=== PATIENT | female | born 1945 | race Caucasian/White ===

== ENCOUNTER 2017-01-22 11:43 | Emergency (ER) | payer MEDICARE ==
[~2017-01-22] VITALS: Ht 147.3 cm; Wt 40.4 kg
[~2017-01-22 11:43] MED LIST: ALPRAZOLAM0.25 M2 PO; ANAPROX DS550 MG PO; AZITHROMYCIN250 M1 PO; BACLOFEN 10MG T10 MG PO; BENZONATATE100 M1 PO; BENZONATATE100 MG PO; CHEWABLE ASPIRI81 MG PO; CIPRO 500MG TA500 MG PO; CLARITIN10 MG PO; COQ1050 MG PO; CRESTOR10 MG PO; DIAZEPAM2 MG PO; FLEXERIL10 MG PO; FOSAMAX70 MG PO; GABAPENTIN100 MG PO; HIPREX1 GM PO; HYDROCODONE BIT1 T39 PO; HYDROCODONE-APA1 TA2 PO; KEFLEX 500MG.500 MG PO; LEVAQUIN500 MG PO; LEVOCETIRIZINE D5 MG PO; LINZESS145 MCG PO; LIPITOR80 M1 PO; LORTAB 5/3251 TAB PO; LORTAB 5/500 501 TAB PO; LYRICA50 MG PO; MAXZIDE 25 MG-31 TAB PO; MEDROL 4MG. DOSE4 MG PO; MIRAPEX 0.120.125 MG PO; NAPROSYN 500MG500 MG PO; NEXIUM40 MG PO; NITROSTAT0.4 MG SL; NORCO 325 MG-51 TAB PO; PERCOCET 5/3251 EACH PO; PERCOCET1 TA1 PO; PRAMIPEXOLE0.125 M1 PO; PREDNISONE 5MG.5 MG PO; PRILOSEC20 M1 PO; SYMBICORT1 AE1 IH; SYNTHROID 0.0.125 MG PO; SYNTHROID 0.10.15 MG PO; TESSALON PERLE100 MG PO; TRAMADOL HYDROC1 TA1 PO; VENLAFAXINE37.5 MG PO; XYZAL5 MG PO; ZOFRAN ODT8 MG PO; ZOFRAN4 MG PO
--- NOTE | 2017-01-22 12:03 | Urgent Treatment Center Report ---
History of Present Issue Date/Time Seen by Provider 01/22/17 1156 Visit Reason Pt arrived:Walked Presenting Problem:PT C/O LEFT KNEE PAIN FOR THE PAST 2 MONTHS AND HER RIGHT GREAT TOE HAS BEEN INFECTED FOR A WEEK Location if Accident: Onset of symptoms date/time:/ or onset unknown for:MEDICAL HX UNKNOWN Have you (or family members/close friends) recently traveled outside the [place]? N If Yes, where/when: Have you had exposure to infectious disease within the past month? TB? Other? Specify: Patient states that she has been having pain in her left knee for 2 months State that pain comes and goes and sometimes hurts worse at night. States that she noticed that she is having some redness around her great toe toenail. State that she has been messing with it thinking she may have had a ingrown nail but she hasn't got anything out of it and now it is red and swollen. 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 and she was worried that she may have caught it ALLERGIES Coded Allergies: Sulfa (Sulfonamide Antibiotics) (Mild, 01/22/17) Home Medications Reported Medications Rosuvastatin Calcium (Crestor) 10 MG PO QHS #30 Alprazolam 0.25 MG PO BID #60 Methenamine Hippurate (Hiprex) 1 GM PO BID PRAMIPEXOLE DI-HCL (Pramipexole Dihydrochloride) 0.125 MG PO QHS #180 TAB HYDROCODONE/ACETAMINOPHEN (Lortab 5-325 MG Tablet) 1 TAB PO TIDP PRN PAIN Pregabalin (Lyrica 50MG) 50 MG PO DAILY VENLAFAXINE HCL (Venlafaxine) 37.5 MG PO DAILY Levothyroxine Sodium (Synthroid 0.15MG) 0.15 MG PO DAILY LEVOCETIRIZINE DIHYDROCHLORIDE (Xyzal) 5 MG PO DAILY Linaclotide (Linzess 145MCG) 145 MCG PO DAILY Ubidecarenone (Coq10) 50 MG PO DAILY History Medical History General CAD? Yes Angina: Yes [place]: Yes Hypertension? Yes Hyperlipidemia? Yes CHF? No DVT? No PE? No COPD? No Asthma? No Anemia? No GERD? Yes Gastric ulcers? Yes GI Bleed? No Hernia? No Thyroid Problems? Yes Hypothyroidism? Yes CVA? No Seizures? No Diabetes? No Insulin Dependent: No Insulin Pump: No Home FSBS? No Renal Insuffiency? No UTI? No Stones? Yes BPH? No GB Disease: No Nephritic Syndrome? No Asplenia? No Hepatitis? No Sickle Cell Disease? No Arthritis? Yes Migraines? No Cataracts? Yes Glaucoma? No MRSA? No HIV? No TB? No Anxiety? No Depression? No Cancer? No More? No Immunization HX DT/Tetanus 1-4 YRS Surgical Hx Previous Surgery?Y CABG - TRIPLE BYPASS ROTATOR CUFF KNEE SX LEFT X2 BACK SX - FX BLOOD CLOT REMOVED LEFT HIP Family History Family HX Diabetes No Hypertension Yes Hyperlipidemia Yes Cancer Yes TB No Social History Smoking Hx Smoker: Former Smoker Tobacco: No Packs/day 1 1/2 - 2 Packs Alcohol Alcohol: No Review of Systems All Other Systems Reviewed and Negative Comment Pain in left knee area for 2 months, and pain, swelling and redness to right great toe toenail Physical Exam Vital Signs Vital Signs Date Time Temp Pulse Resp B/P Pulse O2 O2 Flow FiO2 Ox Delivery Rate 01/22 1151 97.5 71 16 142/71 98 General Appearance normal appearance, WD/WN, no apparent distress Respiratory Status Yes: trachea midline, chest symmetrical, non tender chest. No: respiratory distress. Cardiovascular normal exam Extremities Left knee area no swelling noted, no redness, good pedal pulses, Right great toe area around nail red, swollen with some drainage, drainage obtained for culture. 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 No Results/Orders Orders Procedure Date/time Status [facility] STABILIZE JOINT/AREA 01/22 1244 Active CULTURE, WOUND 01/22 1229 Active KNEE-3 VIEWS-LT 01/22 1156 Active XRAY/CT/US XRAY/CT/US XRAY knee XR interpretation by reviewed by me Xray Results no fracture seen Progress [facility] Progress Notes Comment Due to patient allergy to sulfa discussed treatment with pharmacy [facility], agreed Clindamycin 300 TID for seven days then have paitent follow up with family doctor for further treatment Departure Departure Time of Disposition 1234 Disposition DC Home or Self Care(routine) Clinical Impression Primary Impression: Toe infection Condition STABLE Referrals Kira Desir MD (Family): 3 Days-Call Office Follow up in 1 week to assess infection of toe Patient Instructions DI for Cellulitis -- Adult Additional Instructions Clean area well and apply antibiotic ointment Take oral antibioitic as prescribed FOllow up with family doctor for further evaluation and treatment Eat some yogurt to help with stomach upset from medication Take Probiotic with medication Return if needed If you see that your toe is getting worse and redness spreading up the foot go straight to the ER Discharge Counseling Counseled pt/family regarding diagnosis, test results, home care, follow up needs Prescriptions Current Visit Scripts Clindamycin Hcl (Clindamycin 300MG) 300 MG PO TID #21 CAP at [id number]
--- NOTE | 2017-01-22 12:03 | Urgent Treatment Center Report ---
History of Present Issue Date/Time Seen by Provider 01/22/17 1156 Visit Reason Pt arrived:Walked Presenting Problem:PT C/O LEFT KNEE PAIN FOR THE PAST 2 MONTHS AND HER RIGHT GREAT TOE HAS BEEN INFECTED FOR A WEEK Location if Accident: Onset of symptoms date/time:/ or onset unknown for:MEDICAL HX UNKNOWN Have you (or family members/close friends) recently traveled outside the [place]? N If Yes, where/when: Have you had exposure to infectious disease within the past month? TB? Other? Specify: Patient states that she has been having pain in her left knee for 2 months State that pain comes and goes and sometimes hurts worse at night. States that she noticed that she is having some redness around her great toe toenail. State that she has been messing with it thinking she may have had a ingrown nail but she hasn't got anything out of it and now it is red and swollen. States that a lady at her [employer] was recently diagnosed with MRSA and she was worried that she may have caught it ALLERGIES Coded Allergies: Sulfa (Sulfonamide Antibiotics) (Mild, 01/22/17) Home Medications Reported Medications Rosuvastatin Calcium (Crestor) 10 MG PO QHS #30 Alprazolam 0.25 MG PO BID #60 Methenamine Hippurate (Hiprex) 1 GM PO BID PRAMIPEXOLE DI-HCL (Pramipexole Dihydrochloride) 0.125 MG PO QHS #180 TAB HYDROCODONE/ACETAMINOPHEN (Lortab 5-325 MG Tablet) 1 TAB PO TIDP PRN PAIN Pregabalin (Lyrica 50MG) 50 MG PO DAILY VENLAFAXINE HCL (Venlafaxine) 37.5 MG PO DAILY Levothyroxine Sodium (Synthroid 0.15MG) 0.15 MG PO DAILY LEVOCETIRIZINE DIHYDROCHLORIDE (Xyzal) 5 MG PO DAILY Linaclotide (Linzess 145MCG) 145 MCG PO DAILY Ubidecarenone (Coq10) 50 MG PO DAILY History Medical History General CAD? Yes Angina: Yes [place]: Yes Hypertension? Yes Hyperlipidemia? Yes CHF? No DVT? No PE? No COPD? No Asthma? No Anemia? No GERD? Yes Gastric ulcers? Yes GI Bleed? No Hernia? No Thyroid Problems? Yes Hypothyroidism? Yes CVA? No Seizures? No Diabetes? No Insulin Dependent: No Insulin Pump: No Home FSBS? No Renal Insuffiency? No UTI? No Stones? Yes BPH? No GB Disease: No Nephritic Syndrome? No Asplenia? No Hepatitis? No Sickle Cell Disease? No Arthritis? Yes Migraines? No Cataracts? Yes Glaucoma? No MRSA? No HIV? No TB? No Anxiety? No Depression? No Cancer? No More? No Immunization HX DT/Tetanus 1-4 YRS Surgical Hx Previous Surgery?Y CABG - TRIPLE BYPASS ROTATOR CUFF KNEE SX LEFT X2 BACK SX - FX BLOOD CLOT REMOVED LEFT HIP Family History Family HX Diabetes No Hypertension Yes Hyperlipidemia Yes Cancer Yes TB No Social History Smoking Hx Smoker: Former Smoker Tobacco: No Packs/day 1 1/2 - 2 Packs Alcohol Alcohol: No Review of Systems All Other Systems Reviewed and Negative Comment Pain in left knee area for 2 months, and pain, swelling and redness to right great toe toenail Physical Exam Vital Signs Vital Signs Date Time Temp Pulse Resp B/P Pulse O2 O2 Flow FiO2 Ox Delivery Rate 01/22 1151 97.5 71 16 142/71 98 General Appearance normal appearance, WD/WN, no apparent distress Respiratory Status Yes: trachea midline, chest symmetrical, non tender chest. No: respiratory distress. Cardiovascular normal exam Extremities Left knee area no swelling noted, no redness, good pedal pulses, Right great toe area around nail red, swollen with some drainage, drainage obtained for culture. 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 No Results/Orders Orders Procedure Date/time Status [facility] STABILIZE JOINT/AREA 01/22 1244 Active CULTURE, WOUND 01/22 1229 Active KNEE-3 VIEWS-LT 01/22 1156 Active XRAY/CT/US XRAY/CT/US XRAY knee XR interpretation by reviewed by me Xray Results no fracture seen Progress [facility] Progress Notes Comment Due to patient allergy to sulfa discussed treatment with pharmacy [facility], agreed Clindamycin 300 TID for seven days then have paitent follow up with family doctor for further treatment Departure Departure Time of Disposition 1234 Disposition DC Home or Self Care(routine) Clinical Impression Primary Impression: Toe infection Condition STABLE Referrals Kira Desir MD (Family): 3 Days-Call Office Follow up in 1 week to assess infection of toe Patient Instructions DI for Cellulitis -- Adult Additional Instructions Clean area well and apply antibiotic ointment Take oral antibioitic as prescribed FOllow up with family doctor for further evaluation and treatment Eat some yogurt to help with stomach upset from medication Take Probiotic with medication Return if needed If you see that your toe is getting worse and redness spreading up the foot go straight to the ER Discharge Counseling Counseled pt/family regarding diagnosis, test results, home care, follow up needs Prescriptions Current Visit Scripts Clindamycin Hcl (Clindamycin 300MG) 300 MG PO TID #21 CAP at [id number]
[2017-01-22] MEDS ORDERED: CLINDAMYCIN HC300 MG PO (12:41)
[2017-01-22 12:48] VITALS: BP 142/71
--- NOTE | 2017-01-22 13:45 | RADIOLOGY REPORT PS360 ---
KNEE-3 VIEWS-LT HISTORY: Pain following injury, pain with walking medially pain ORDERING PHYSICIAN: MARLON WALLS APRN PATIENT AGE: 71 years COMPARISON: 09/27/2008 FINDINGS: No fracture or dislocation. No lytic or blastic change. Normal mineralization. No significant arthritic changes evident. No other significant findings IMPRESSION: Negative Knee
== END 2017-01-22 12:49 | disposition home or self-care (01) ==
LOC: UTC 11:43
DX: L03.031 Cellulitis of right toe (principal); M25.562 Pain in left knee; Z88.2 Allergy status to sulfonamides; I10 Essential (primary) hypertension; E78.5 Hyperlipidemia, unspecified; K21.9 Gastro-esophageal reflux disease without esophagitis; Z87.891 Personal history of nicotine dependence